=== PATIENT | male | born 1970 | race Caucasian/White ===

== ENCOUNTER → 2018-07-14 | Outpatient (CLI) | payer BC ==
--- NOTE | 2018-07-14 19:07 | ECHOF ---
Referral Reason:R07.89 Chest Pain MEASUREMENTS -------- HEIGHT: 162.6 cm WEIGHT: 77.1 kg BP: RVIDd: 2.8 cm (< 3.3) IVSd: 0.9 cm (0.6 - 1.1) LVIDd: 4.6 cm (3.9 - 5.3) LVPWd: 0.8 cm (0.6 - 1.1) IVSs: 1.3 cm LVIDs: 3.3 cm LVPWs: 1.1 cm LA Diam: 3.4 cm (2.7 - 3.8) Ao Diam: 2.4 cm (2.0 - 3.7) AV Cusp: 1.8 cm (1.5 - 2.6) LA Diam: 3.7 cm (2.7 - 3.8) MV EXCURSION: 18.395 mm (> 18.000) MV EF SLOPE: 88 mm/s (70 - 150) EPSS: 0.3 cm MV E Saad: 0.57 m/s MV DecT: 122 ms MV A Saad: 0.63 m/s MV E/A Ratio: 0.91 RAP: 5.00 mmHg RVSP: 21.64 mmHg FINDINGS -------- Sinus rhythm. This was a technically good study. LV size, wall thickness and systolic function are normal, with an EF greater than 55%. The left amol tricular size is normal. The right ventricle is normal in size. The left atrial size is normal. The right atrial size is normal. Interatrial and interventricular septum intact. The aortic valve is trileaflet, and appears structurally normal. No aortic stenosis or regurgitation. Mild mitral annular calcification present. Mild mitral regurgitation is present. Mild tricuspid regurgitation present. There is no evidence of pulmonary hypertension. The right v entricular systolic pressure, as measured by Doppler, is 21.64mmHg. There is no pulmonic regurgitation present. The aortic root size is normal. Normal inferior vena cava with normal inspiratory collapse consistent with estimated right atrial pre ssure of 5 mmHg. There is no pericardial effusion. CONCLUSIONS -------- 1. LV size, wall thickness and systolic function are normal, with an EF greater than 55%. 2. The left ventricular size is normal. 3. The right ventricle is normal in size. 4. The left atrial size is normal. 5. The right atrial size is normal. 6. Interatrial and interventricular septum intact. 7. The aortic valve is trileaflet, and appears structurally normal. No aortic stenosis or regurgitati on. 8. Mild mitral annular calcification present. 9. Mild mitral regurgitation is present. 10. Mild tricuspid regurgitation present. 11. There is no evidence of pulmonary hypertension. 12. The right ventricular systolic pressure, as measured by Doppler, is 21.64mmHg. 13. There is no pulmonic regurgitation present. 14. The aortic root size is normal. 15. Normal inferior vena cava with normal inspiratory collapse consistent with estimated right atrial pressure of 5 mmHg. 16. There is no pericardial effusion. [employer] EQUIPMENT SALESPERSON: Savita Adams RDCS
== END | disposition home or self-care (01) ==
LOC: RADECHMAIN 10:29
PROVIDERS: ATTEND Family Medicine
DX: I08.1 Rheumatic disorders of both mitral and tricuspid valves (principal)
CPT/HCPCS: 93306

== ENCOUNTER 2018-07-18 08:34 | Observation (INO) | payer BC ==
[2018-07-18] MEDS ORDERED: ASPIRIN 81 MG PO STA (08:51)
[2018-07-18] MEDS ORDERED: NITROGLYCERIN OINT 1 INCH/GM PACKET TOPICAL STA (08:51)
--- NOTE | 2018-07-18 08:54 | ED ---
General Adult HPI - General Chief complaint: Chest Pain Stated complaint: CHEST PAIN x2 WKS Time Seen by Provider: 07/18/18 08:44 Source: patient, RN notes reviewed Mode of arrival: ambulatory Limitations: no limitations - History of Present Illness Initial comments: Patient is a pleasant 47-year-old male presenting to the emergency department chest discomfort. Symptoms have been present over the past couple of weeks. Discomfort was fairly steady for the first week and then seemed to improve. Discomfort has gotten worse again, especially this morning. Discomfort is currently 4/10. Discomfort feels like pressure in the left chest. No associat ed dyspnea, nausea, or diaphoresis. Patient states there has been occasional radiation to the shoulder. Patient did have blood work and an echo done recently as ordered by his doctor. - Related Data Home Medications Medication Instructions Recorded Confirmed Omeprazole 40 mg PO DAILY 07/18/18 07/18/18 Allergies Allergy/AdvReac Type Severity Reaction Status Date / Time Penicillins Allergy Unknown Verified 07/18/18 08:58 Childhood Review of Systems ROS Statement: Those systems with pertinent positive or pertinent negative responses have been documented in the HPI. ROS Other: All systems not noted in ROS Statement are negative. Constitutional: Denies: fever Eyes: Denies: eye pain ENT: Denies: ear pain Respiratory: Denies: cough, dyspnea Cardiovascular: Reports: chest pain Endocrine: Denies: fatigue Gastrointestinal: Denies: abdominal pain Genitourinary: Denies: dysuria Musculoskeletal: Denies: back pain Skin: Denies: rash Neurological: Denies: weakness Past Medical History Past Medical History: No Reported History Additional Past Medical History / Comment(s): 04/08/15 Pt presented to [facility] ER wit intermittent chest discomfort episodes over the last few days and did have some episodes this morning but none on arrival to ER. Pain was a pressure/tightness in sternal region and last about 30 seconds each time. Pain was somewhat positional. Pt woke this morning with left lower quadrant abdomina l pain and some low back pain as well. He is admitted with clinical impression of chest pain and abdominal pain. History of Any Multi-Drug Resistant Organisms: None Reported Past Surgical History: No Surgical Hx Reported Past Anesthesia/Blood Transfusion Reactions: Unable to Obtain Additional Past Anesthesia/Blood Transfusion Reaction / Comment(s): Pt has never had anesthesia. Past Psychological History: No Psychological Hx Reported Smoking Status: Never smoker Past Alcohol Use History: Occasional Past Drug Use History: None Reported - Past Family History Father Family Medical History: Myocardial Infarction ([place]) Additional Family Medical History / Comment(s): Father had a MO at age 48 and CABG surgery. He is living. Mother Family Medical History: Myocardial Infarction ([place]) Additional Family Medical History / Comment(s): Mother had a MO at age 54 yrs. She is still living. General Exam Limitations: no limitations General appearance: alert, in no apparent distress Head exam: Present: atraumatic Eye exam: Present: normal appearance, PERRL ENT exam: Present: normal oropharynx Neck exam: Present: normal inspection Respiratory exam: Present: normal lung sounds bilaterally Cardiovascular Exam: Present: regular rate, normal rhythm, normal heart sounds Expanded Peripheral pulses: 2+: Radial (R), Radial (L), Dorsalis Pedis (R), Dorsalis Pedis (L) GI/Abdominal exam: Present: soft. Absent: tenderness Extremities exam: Present: normal inspection. Absent: pedal edema, calf tenderness Neurological exam: Present: alert Psychiatric exam: Present: normal affect, normal mood Skin exam: Present: normal color Course Vital Signs 07/18/18 08:39 Temperature 98.2 F Pulse Rate 63 Respiratory 18 Rate Blood Pressure 138/64 O2 Sat by Pulse 98 Oximetry EKG Findings - EKG Comments: EKG Findings:: Normal sinus rhythm 66. NV 138. QRS 92. QT 424. QTC 444. Normal axis. LVH criteria. No acute ST change. Medical Decision Making - Medical Decision Making Patient reevaluated and approximately 50% improved following the 2 glycerin paced. Patient and family updated on results and plan. Case was crusted detail with Dr. Maldonado, covering fracture [place], who will admit. - Lab Data Result diagrams: 07/18/18 08:55 07/18/18 08:55 Lab Results 07/18/18 07/18/18 07/18/18 Range/Units 08:55 08:55 08:55 WBC 5.1 (3.8-10.6) k/uL RBC 5.42 (4.30-5.90) m/uL Hgb 15.0 (13.0-17.5) gm/dL Hct 46.5 (39.0-53.0) % MCV 85.9 (80.0-100.0) fL MCH 27.7 (25.0-35.0) pg MCHC 32.2 (31.0-37.0) g/dL RDW 13.4 (11.5-15.5) % Plt Count 167 (150-450) k/uL Neutrophils % 70 % Lymphocytes % 21 % Monocytes % 6 % Eosinophils % 2 % Basophils % 0 % Neutrophils # 3.6 (1.3-7.7) k/uL Lymphocytes # 1.1 (1.0-4.8) k/uL Monocytes # 0.3 (0-1.0) k/uL Eosinophils # 0.1 (0-0.7) k/uL Basophils # 0.0 (0-0.2) k/uL PT 9.8 (9.0-12.0) sec INR 0.9 (<1.2) APTT 25.3 (22.0-30.0) sec Sodium 140 (137-145) mmol/L Potassium 4.3 (3.5-5.1) mmol/L Chloride 105 (98-107) mmol/L Carbon Dioxide 26 (22-30) mmol/L Anion Gap 9 mmol/L BUN 15 (9-20) mg/dL Creatinine 0.72 (0.66-1.25) mg/dL Est GFR (CKD-EPI)AfAm >90 (>60 ml/min/1.73 sqM) Est GFR (CKD-EPI)NonAf >90 (>60 ml/min/1.73 sqM) Glucose 117 H (74-99) mg/dL Calcium 10.0 (8.4-10.2) mg/dL Magnesium 2.2 (1.6-2.3) mg/dL Total Bilirubin 0.9 (0.2-1.3) mg/dL AST 33 (17-59) U/L ALT 53 (21-72) U/L Alkaline Phosphatase 83 (38-126) U/L Troponin I (0.000-0.034) ng/mL Total Protein 7.4 (6.3-8.2) g/dL Albumin 4.9 (3.5-5.0) g/dL 07/18/18 Range/Units 08:55 WBC (3.8-10.6) k/uL RBC (4.30-5.90) m/uL Hgb (13.0-17.5) gm/dL Hct (39.0-53.0) % MCV (80.0-100.0) fL MCH (25.0-35.0) pg MCHC (31.0-37.0) g/dL RDW (11.5-15.5) % Plt Count (150-450) k/uL Neutrophils % % Lymphocytes % % Monocytes % % Eosinophils % % Basophils % % Neutrophils # (1.3-7.7) k/uL Lymphocytes # (1.0-4.8) k/uL Monocytes # (0-1.0) k/uL Eosinophils # (0-0.7) k/uL Basophils # (0-0.2) k/uL PT (9.0-12.0) sec INR (<1.2) APTT (22.0-30.0) sec Sodium (137-145) mmol/L Potassium (3.5-5.1) mmol/L Chloride (98-107) mmol/L Carbon Dioxide (22-30) mmol/L Anion Gap mmol/L BUN (9-20) mg/dL Creatinine (0.66-1.25) mg/dL Est GFR (CKD-EPI)AfAm (>60 ml/min/1.73 sqM) Est GFR (CKD-EPI)NonAf (>60 ml/min/1.73 sqM) Glucose (74-99) mg/dL Calcium (8.4-10.2) mg/dL Magnesium (1.6-2.3) mg/dL Total Bilirubin (0.2-1.3) mg/dL AST (17-59) U/L ALT (21-72) U/L Alkaline Phosphatase (38-126) U/L Troponin I <0.012 (0.000-0.034) ng/mL Total Protein (6.3-8.2) g/dL Albumin (3.5-5.0) g/dL - Radiology Data Radiology results: image reviewed (Chest x-ray shows no acute process) Disposition Clinical Impression: Chest pain Disposition: ADMITTED IP TO THIS [facility] Is patient prescribed a controlled substance at d/c from ED?: No Referrals: Karson Murry DO [Primary Care Provider] - 1-2 days Decision Time: 10:45
[2018-07-18 09:09] LABS: Basophils % (A) 0 %; Eosinophils # (A) 0.1 k/uL (0-0.7); Eosinophils % (A) 2 %; HCT 46.5 % (39.0-53.0); Lymphocytes # (A) 1.1 k/uL (1.0-4.8); Lymphocytes % (A) 21 %; MCH 27.7 pg (25.0-35.0); MCHC 32.2 g/dL (31.0-37.0); MCV 85.9 fL (80.0-100.0); Mean Platelet Volume 6.8; Monocytes # (A) 0.3 k/uL (0-1.0); Monocytes % (A) 6 %; Neutrophils # (A) 3.6 k/uL (1.3-7.7); Neutrophils % (A) 70 %; Platelet Count 167 k/uL (150-450); RBC 5.42 m/uL (4.30-5.90); RDW 13.4 % (11.5-15.5); WBC 5.1 k/uL (3.8-10.6)
--- NOTE | 2018-07-18 09:11 | XR ---
EXAMINATION TYPE: XR chest 2V DATE OF EXAM: 07/18/2018 COMPARISON: 04/08/2015 TECHNIQUE: PA and lateral views submitted. HISTORY: Chest pain FINDINGS: The lungs are clear and there is no pneumothorax, pleural effusion, or focal pneumonia. Limited ins piration. Mild hypertrophic change of the spine. IMPRESSION: 1. No acute process.
[2018-07-18 09:15] LABS: INR 0.9 (<1.2); Partial Thromboplastin Time 25.3 sec (22.0-30.0); Prothrombin Time 9.8 sec (9.0-12.0)
[2018-07-18 09:18] LABS: ALT 53 U/L (21-72); AST 33 U/L (17-59); Albumin 4.9 g/dL (3.5-5.0); Alkaline Phosphatase 83 U/L (38-126); Anion Gap 9 mmol/L; Blood Urea Nitrogen 15 mg/dL (9-20); Carbon Dioxide 26 mmol/L (22-30); Chloride 105 mmol/L (98-107); Glucose 117 mg/dL (74-99); Magnesium 2.2 mg/dL (1.6-2.3); Potassium 4.3 mmol/L (3.5-5.1); Sodium 140 mmol/L (137-145); Total Bilirubin 0.9 mg/dL (0.2-1.3); Total Protein 7.4 g/dL (6.3-8.2)
[2018-07-18] MEDS ORDERED: NITROGLYCERIN SL TABS 0.4 MG TAB SUBLINGUAL PRN (10:45)
[2018-07-18 12:36] VITALS: BMI 29.7
--- NOTE | 2018-07-18 14:25 | P.CRDCN ---
History of Present Illness History of present illness: This is a pleasant 47-year-old male with past medical history significant for gastroesophageal reflux disease. He denies history of coronary artery disease, hypertension and dyslipidemia. 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 He does have significant family history of premature coronary artery disease with his father having suffered a heart attack at the age of 48 and undergoing bypass grafting We have been asked to see him in consultation for symptoms of chest discomfort. He describes a heavy pressure sensation in the midsternal region that has been intermittent previous 2 weeks. There is no radiation to the arm, back, neck or jaw. He has no associated s hortness of breath, dizziness, palpitations, nausea, vomiting or diaphoresis. There is no specific aggravating or alleviating factor. He says specifically today his pain has been more frequent and is not associated with exertion or activity. He uses his treadmill at home daily and he does not feel chest discomfort with exertion. He recently saw his primary care physician with similar complaints and underwent a 2-D echocardiogram revealing preserved LV systolic function with ejection fraction 55-60%. He is scheduled to undergo stress testing on July 25. He is seen and examined resting comfortably in bed. He currently has chest discomfort. He states he has been taking omeprazole for the previous couple of weeks and feels no definite difference in his pain. Initial EKG on arrival reveals sinus mechanism with no acute ST or T wave abnormalities noted. Chest x-ray is negative for acute cardiopulmonary process. Laboratory data reviewed, WBC 5.1, hemoglobin 15, platelets 167, sodium 140, potassium 4.3, creatinine 0.72, magnesium 2.2, cardiac enzymes negative 1. He takes no daily cardiac medications. At the time of my exam: CONSTITUTIONAL: Denies fever. Denies chills. EYES: Denies blurred vision. Denies vision changes. Denies eye pain. EARS, NOSE, MOUTH & THROAT: Denies headache. Denies sore throat. Denies ear pain. CARDIOVASCULAR: Denies chest pain. Denies shortness of breath. Denies orthopnea. Denies PND. Denies palpitations. RESPIRATORY: Denies cough. GASTROINTESTINAL: Denies abdominal pain. Denies diarrhea. Denies constipation. Denies nausea. Denies vomiting. MUSCULOSKELETAL: Denies myalgias. INTEGUMENTARY: Denies pruitis. Denies rash. NEUROLOGIC: Denies numbness. Denies tingling. Denies weakness. PSYCHIATRIC: Denies anxiety. Denies depression. ENDOCRINE: Denies fatigue. Denies weight change. Denies polydipsia. Denies polyurina. GENITOURINARY: Denies burning, hematuria or urgency with micturation. HEMATOLOGIC: Denies history of anemia. Denies bleeding. Blood pressure 122/78 heart rate 59 afebrile maintaining oxygen saturation on room air GENERAL: This is a 47-year-old male in no apparent distress at the time of my examination. HEENT: Head is atraumatic, normocephalic. Pupils are equal, round. Sclerae anicteric. Conjunctivae are clear. Mucous membranes of the mouth are moist. Neck is supple. There is no jugular venous distention. No carotid bruit is heard. LUNGS: Clear to auscultation no wheezes, rales or rhonchi. No chest wall tenderness is noted on palpation or with deep breathing. HEART: Regular rate and rhythm without murmurs, rubs or gallops. S1 and S2 heard. ABDOMEN: Soft, mild epigastric tenderness. Bowel sounds are heard. No o rganomegaly noted. EXTREMITIES: No evidence of peripheral edema and no calf tenderness noted. VASCULAR: Radial and dorsalis pedis pulses palpated, no evidence of clubbing. NEUROLOGIC: Patient is awake, alert and oriented x3. ASSESSMENT Chest pain, atypical for angina. History of gastroesophageal reflux disease PLAN Remove Nitropaste and repeat EKG now that he is having active chest discomfort. EKG was obtained and reviewed and reveals sinus mechanism with no acute ST or T- wave abnormalities. Continue to obtain serial cardiac enzymes to rule out an acute coronary event. Check lipid profile. If enzymes are normal we will proceed with stress testing tomorrow morning rather than waiting until next week due to his family history. Thank you kindly for this consultation. Nurse Practitioner note has been reviewed, I agree with a documented findings and plan of care. Patient was seen and examined. Past Medical History Past Medical History: No Reported History, GERD/Reflux, Osteoarthritis (OA) Additional Past Medical History / Comment(s): Gastritis, esophagitis, cervical arthritis History of Any Multi-Drug Resistant Organisms: None Reported Past Surgical History: No Surgical Hx Reported Additional Past Surgical History / Comment(s): Colonoscopy-normal, skin lesions removed from forehead. Past Anesthesia/Blood Transfusion Reactions: No Reported Reaction, Unable to Obtain Additional Past Anesthesia/Blood Transfusion Reaction / Comment(s): Pt has never had anesthesia. Smoking Status: Never smoker - Past Family History Father Family Medical History: Myocardial Infarction ([place]) Additional Family Medical History / Comment(s): Father had a [place] at age 48 and CABG surgery. He is living. Mother Family Medical History: Cancer, Myocardial Infarction ([place]) Additional Family Medical History / Comment(s): Mother had a [place] at age 54 yrs. She from nonhodgkins lymphoma Medications and Allergies Home Medications Medication Instructions Recorded Confirmed Type Omeprazole 40 mg PO DAILY 07/18/18 07/18/18 History Allergies Allergy/AdvReac Type Severity Reaction Status Date / Time Penicillins Allergy Unknown Verified 07/18/18 08:58 Childhood Physical Exam Vitals: Vital Signs Temp Pulse Pulse Resp BP BP Pulse Ox 07/18/18 11:07 98.2 F 59 L 18 122/78 96 07/18/18 10:45 62 19 109/62 97 07/18/18 08:39 98.2 F 63 18 138/64 98 Intake and Output 07/17/18 07/18/18 07/18/18 22:59 06:59 14:59 Intake Total 236 Balance 236 Intake: Oral 236 Other: Voiding Method Toilet Weight 78.471 kg Results 07/18/18 08:55 07/18/18 08:55 Cardiac Enzymes 07/18/18 07/18/18 Range/Units 08:55 08:55 AST 33 (17-59) U/L Troponin I <0.012 (0.000-0.034) ng/mL Coagulation 07/18/18 Range/Units 08:55 PT 9.8 (9.0-12.0) sec APTT 25.3 (22.0-30.0) sec CBC 07/18/18 Range/Units 08:55 WBC 5.1 (3.8-10.6) k/uL RBC 5.42 (4.30-5.90) m/uL Hgb 15.0 (13.0-17.5) gm/dL Hct 46.5 (39.0-53.0) % Plt Count 167 (150-450) k/uL Comprehensive Metabolic Panel 07/18/18 Range/Units 08:55 Sodium 140 (137-145) mmol/L Potassium 4.3 (3.5-5.1) mmol/L Chloride 105 (98-107) mmol/L Carbon Dioxide 26 (22-30) mmol/L BUN 15 (9-20) mg/dL Creatinine 0.72 (0.66-1.25) mg/dL Glucose 117 H (74-99) mg/dL Calcium 10.0 (8.4-10.2) mg/dL AST 33 (17-59) U/L ALT 53 (21-72) U/L Alkaline Phosphatase 83 (38-126) U/L Total Protein 7.4 (6.3-8.2) g/dL Albumin 4.9 (3.5-5.0) g/dL Current Medications Generic Name Dose Route Start Last Admin Trade Name Freq PRN Reason Stop Dose Admin Aspirin 325 mg 07/19/18 09:00 Aspirin PO DAILY HANS Nitroglycerin 1 inch 07/18/18 15:00 Nitro-Bid Oint TOPICAL Q6H HANS Nitroglycerin 0.4 mg 07/18/18 10:45 Nitrostat SUBLINGUAL Q5M PRN Chest Pain Intake and Output 07/17/18 07/18/18 07/18/18 22:59 06:59 14:59 Intake Total 236 Balance 236 Intake: Oral 236 Other: Voiding Method Toilet Weight 78.471 kg Patient Weight 07/19/18 06:59 Weight 78.471 kg 07/18/18 08:55 07/18/18 08:55
--- NOTE | 2018-07-18 14:41 | P.HPIM ---
History of Present Illness H&P Date: 07/18/18 Chief Complaint: Chest pain This is a 47-year-old male patient of Dr. Murry with a past medical history of gastroesophageal reflux disease. Patient states he has had lower sternal chest pain that has been going on for couple weeks. He denies any radiation, no diaphoresis. He states he walks on a treadmill at a fast paced on an incline 30 minutes every morning and does not have the pain. Usually couple hours later while he is driving to work he starts having pain. Over the weekend he did not have any pain at all but on Tuesday morning it started again. He denies having any dysphagia. No nausea or vomiting. No shortness of breath with ambulation no edema. Dr. Murry his ordered for echocardiogram which was done on July 14 that revealed EF of 55%, mild mitral regurgitation, mild tricuspid regurgitation, no pulmonary hypertension. Troponin was negative at that time and triglycerides 66, cholesterol 209, LDL 143, HDL 53. Patient states that he started omeprazole about one week ago he has not noted any improvement of his chest pain. He has cut back on his coffee intake from 4 cups per day down to one cup per day and today he only had half a cup of coffee. He states he has been avoidingseafoods. Despite these changes he has not had any improvement or resolution of the pain. He denies any increased stress in his life. He does have an outpatient stress test scheduled for July 25 which was ordered by Dr. Murry. Patient came into [facility] emergency center for evaluation. Troponin has been negative. Patient has been placed on the observation unit. Patient has been seen by cardiology with plan for stress echo tomorrow. Patient had similar symptoms a couple years ago and had follow-up with the GI doctor but did not have EGD done. Review of Systems All systems: negative Constitutional: Denies chills, Denies fatigue, Denies fever, Denies lethargy, Denies malaise, Denies poor appetite, Denies weakness, Denies weight loss Eyes: denies blurred vision, denies pain Ears, nose, mouth and throat: Denies dysphagia, Denies epistaxis, Denies headache, Denies nasal congestion, Denies nasal discharge, Denies sore throat, Denies vertigo Cardiovascular: Reports chest pain, Denies decreased exercise tolerance, Denies dyspnea on exertion, Denies edema, Denies leg edema, Denies lightheadedness, Denies shortness of breath, Denies syncope Respiratory: Denies cough, Denies cough with sputum, Denies dyspnea, Denies excessive sputum, Denies hemoptysis, Denies home oxygen, Denies wheezing Gastrointestinal: Denies abdominal pain, Denies diarrhea, Denies loss of appetite, Denies melena, Denies nausea, Denies vomiting Genitourinary: Denies dysuria, Denies urinary retention Musculoskeletal: Denies frequent falls, Denies gait dysfunction, Denies muscle weakness, Denies myalgias Integumentary: Denies pruritus, Denies rash, Denies wounds Neurological: Denies aphasia, Denies change in mentation, Denies change in spee ch, Denies confusion, Denies head injury, Denies headaches, Denies numbness, Denies seizures, Denies vertigo, Denies weakness Psychiatric: Denies anxiety, Denies depression Endocrine: Denies fatigue, Denies weight change Past Medical History Past Medical History: No Reported History, GERD/Reflux, Osteoarthritis (OA) Additional Past Medical History / Comment(s): Gastritis, esophagitis, cervical arthritis History of Any Multi-Drug Resistant Organisms: None Reported Past Surgical History: No Surgical Hx Reported Additional Past Surgical History / Comment(s): Colonoscopy-normal, skin lesions removed from forehead. Past Anesthesia/Blood Transfusion Reactions: No Reported Reaction, Unable to Obtain Additional Past Anesthesia/Blood Transfusion Reaction / Comment(s): Pt has never had anesthesia. Smoking Status: Never smoker Additional Past Alcohol Use History / Comment(s): Patient is a lifelong nonsmoker. He denies any marijuana, street drug use. He drinks alcohol occasionally. - Past Family History Father Family Medical History: Myocardial Infarction ([place]) Additional Family Medical History / Comment(s): Father had a [place] at age 48 and CABG surgery. He is living. Mother Family Medical History: Cancer, Myocardial Infarction ([place]) Additional Family Medical History / Comment(s): Mother had a [place] at age 54 yrs. She from nonhodgkins lymphoma Brother(s) Additional Family Medical History / Comment(s): The patient's father and sister do not have any medical problems. Patient has children with no major medical problems. Medications and Allergies Home Medications Medication Instructions Recorded Confirmed Type Omeprazole 40 mg PO DAILY 07/18/18 07/18/18 History Allergies Allergy/AdvReac Type Severity Reaction Status Date / Time Penicillins Allergy Unknown Verified 07/18/18 08:58 Childhood Physical Exam Vitals: Vital Signs Temp Pulse Pulse Resp BP BP Pulse Ox 07/18/18 11:07 98.2 F 59 L 18 122/78 96 07/18/18 10:45 62 19 109/62 97 07/18/18 08:39 98.2 F 63 18 138/64 98 Intake and Output 07/17/18 07/18/18 07/18/18 22:59 06:59 14:59 Other: Voiding Method Toilet Weight 78.471 kg Gen: This is a 47-year-old male patient. He is resting in bed and appears to be comfortable and in no acute distress. HEENT: Head is atraumatic, normocephalic. Pupils equal, round. Sclerae is anicteric. NECK: Supple. No JVD. No lymphadenopathy. No thyromegaly. LUNGS: Clear to auscultation. No wheezes or rhonchi. No intercostal retractions. HEART: Regular rate and rhythm. No murmur. ABDOMEN: Soft. Bowel sounds are present. No masses. No tenderness. No epigastric tenderness. EXTREMITIES: No pedal edema. No calf tenderness. Dorsalis pedis +2 bilaterally. NEUROLOGICAL: Patient is awake, alert and oriented x3. Cranial nerves 2 through 12 are grossly intact. Results CBC & Chem 7: 07/18/18 08:55 07/18/18 08:55 Labs: Abnormal Lab Results - Last 24 Hours (Table) 07/18/18 Range/Units 08:55 Glucose 117 H (74-99) mg/dL Assessment and Plan Plan: 1. Chest pain. Repeat troponins, cardiology consult appreciated. Echo stress test ordered for tomorrow. 2. Gastroesophageal reflux disease. Patient is normally on omeprazole 40 mg daily and started this one week ago. 3. Cervical arthritis, stable. Patient placed in the observation unit. Discharge plan: Home tomorrow if stress test is negative. Impression and plan of care have been directed as dictated by the signing physician. Dora Sullivan nurse practitioner acting as scribe for signing physician.
[2018-07-18] MEDS ORDERED: NITROGLYCERIN OINT 1 INCH/GM PACKET TOPICAL SCH (15:00)
[2018-07-18] MEDS: PANTOPRAZOLE 40 MG TABLET PO SCH (17:23)
[2018-07-19 08:27] VITALS: RESP 18; TEMP 97.9
[2018-07-19] MEDS ORDERED: ASPIRIN 325 MG TAB PO SCH (09:00)
[2018-07-19] MEDS ORDERED: ASPIRIN 81 MG PO SCH (09:00)
--- NOTE | 2018-07-19 10:07 | P.PN ---
Subjective This is a pleasant 47-year-old male with past medical history significant for gastroesophageal reflux disease. He denies history of coronary artery disease, hypertension and dyslipidemia. He does not follow regularly with a rn clinical. He does have significant family history of premature coronary artery disease with his father having suffered a heart attack at the age of 48 and undergoing bypass grafting We have been asked to see him in consultation for symptoms of chest discomfort. He describes a heavy pressure sensation in the midsternal region that has been intermittent previous 2 weeks. There is no radiation to the arm, back, neck or jaw. He has no associated shortness of breath, dizziness, palpitations, nausea, vomiting or diaphoresis. There is no specific aggravating or alleviating factor. He says specifically today his pain has been more frequent and is not associated with exertion or activity. He uses his treadmill at home daily and he does not feel chest discomfort with exertion. He recently saw his primary care physician with similar complaints and underwent a 2-D echocardiogram revealing preserved LV systolic function with ejection fraction 55-60%. He is scheduled to undergo stress testing on July 25. He is seen and examined resting comfortably in bed. He currently has chest discomfort. He states he has been taking omeprazole for the previous couple of weeks and feels no definite difference in his pain. 07/19/2018 Patient is seen and examined resting comfortably in bed with his at the bedside. Protonix was initiated yesterday 40 mg twice a day. He states approximately one hour after receiving the Protonix last night his chest discomfort greatly improved. He had a return of his chest discomfort this morning, he has yet to receive his Protonix. Blood pressure 107/68 heart rate 65 afebrile maintaining oxygen saturation on room air. Laboratory data reviewed, cardiac enzymes negative 3. GENERAL: This is a 47-year-old male in no apparent distress at the time of my examination. HEENT: Head is atraumatic, normocephalic. Pupils are equal, round. Sclerae anicteric. Conjunctivae are clear. Mucous membranes of the mouth are moist. Neck is supple. There is no jugular venous distention. No carotid bruit is heard. LUNGS: Clear to auscultation no wheezes, rales or rhonchi. No chest wall tenderness is noted on palpation or with deep breathing. HEART: Regular rate and rhythm without murmurs, rubs or gallops. S1 and S2 heard. EXTREMITIES: No evidence of peripheral edema and no calf tenderness noted. ASSESSMENT Chest pain, atypical for angina. History of gastroesophageal reflux disease PLAN Symptoms sound suggestive of gastroesophageal reflux disease. Will proceed with stress echocardiogram to rule out stress-induced ischemia. Stress test is normal he should follow-up with GI services as an outpatient. Nurse Practitioner note has been reviewed, I agree with a documented findings and plan of care. Patient was seen and examined. Objective - Vital Signs Vital signs: Vital Signs Temp 97.9 F 07/19/18 07:30 Pulse 65 07/19/18 07:30 Resp 18 07/19/18 07:30 BP 107/68 07/19/18 07:30 Pulse Ox 97 07/19/18 07:30 Intake & Output 07/18/18 07/19/18 07/19/18 18:59 06:59 18:59 Intake Total 236 Balance 236 Weight 78.471 kg Intake: Oral 236 Other: Voiding Method Toilet Toilet # Voids 1 - Labs CBC & Chem 7: 07/18/18 08:55 07/18/18 08:55
--- NOTE | 2018-07-19 11:17 | P.STRESS ---
- Stress Test Note Stress Test Results/Findings: Exam Performed: stress echo exercise Exam Date: 07/19/18 Reason for Exam: CHEST PAIN Height: 5 ft 4 in Weight: 78.471 kg Protocol: STRESS ECHO Stage: 4 Duration of Exercise: 12:00 MINUTES Resting Heart Rate: 61 Resting Blood Pressure: 132/63 Maximum Achieved Heart Rate: 157 Maximum Achieved Blood Pressure: 29/60 85% PMHR: 147 100% PMHR: 173 METS: 12.1 Technologist Comment: Stress Test Results/Findings: Baseline heart is 61 beats a minute, Baseline blood pressure 132/63 mmHg Baseline 20 seizures normal sinus rhythm normal cardiac intervals Patient exercised on a [place] protocol for 12 minutes achieving a peak 100 156 beats a minute Occasional PVCs Baseline 2-D echo images showed normal LV systolic function without segmental wall motion abnormalities At peak exercise there was excellent augmentation of oral LV contractility, without development of any wall motion amenities At recovery region global LV systolic function remained normal Impression Good exercise capacity No ECG or echocardiogram for evidence for ischemia
[2018-07-19] MEDS: PANTOPRAZOLE 40 MG TABLET PO SCH (11:36)
[2018-07-19 11:58] VITALS: BP 109/65; PULSE 67
== END 2018-07-19 13:11 | disposition home or self-care (01) ==
LOC: EC 08:34 → 1SOBS 10:45
PROVIDERS: ADMIT Internal Medicine; ATTEND Internal Medicine
DX: R07.89 Other chest pain (principal); K21.9 Gastro-esophageal reflux disease without esophagitis; M46.92 Unspecified inflammatory spondylopathy, cervical region; I08.1 Rheumatic disorders of both mitral and tricuspid valves; M19.90 Unspecified osteoarthritis, unspecified site; Z79.899 Other long term (current) drug therapy; Z88.0 Allergy status to penicillin; Z87.19 Personal history of other diseases of the digestive system; Z80.7 Family history of other malignant neoplasms of lymphoid, hematopoietic and related tissues; Z82.49 Family history of ischemic heart disease and other diseases of the circulatory system
CPT/HCPCS: 99285; 36415; 93005; 93351; 80053; 83735; 84484; 85025; 85610; 85730; 71046; G0378 ×2

== ENCOUNTER → 2018-08-04 | Outpatient (CLI) | payer BC ==
--- NOTE | 2018-08-04 11:09 | US ---
EXAMINATION TYPE: US gallbladder DATE OF EXAM: 08/04/2018 COMPARISON: NONE CLINICAL HISTORY: R07.89 Other chest pain. EXAM MEASUREMENTS: Liver Length: 13.1 cm Gallbladder Wall: 0.3 cm CBD: 0.4 cm Right Kidney: 10.9 x 6.0 x 6.0 cm Pancreas: visualized portions wnl Liver: wnl Gallbladder: No stones seen Evidence for sonographic Hankins's sign: No CBD: wnl Right Kidney: No hydronephrosis or masses seen IMPRESSION: 1. Visualized right upper quadrant ultrasound unremarkable.
== END | disposition home or self-care (01) ==
LOC: RADUSWWP 09:21
PROVIDERS: ATTEND Internal Medicine Gastroenterology
DX: R07.89 Other chest pain (principal)
CPT/HCPCS: 76705

== ENCOUNTER 2018-08-08 10:09 | Day surgery (SDC) | payer BC ==
[2018-08-03 13:28] VITALS: BMI 29.0
[~2018-08-08 10:09] MED LIST: LACTATED RINGERS 1,000 ML IV SCH
[2018-08-08 11:05] VITALS: PULSE 65; TEMP 98
[2018-08-08] MEDS ORDERED: LIDOCAINE 1% 20 ML VIAL (10MG/ML) FOR IV START INTRADERMA ONE (11:15)
[2018-08-08] MEDS ORDERED: fentaNYL (PF) 50 MCG/ML 2 ML AMP ONE (11:55)
[2018-08-08] MEDS ORDERED: MIDAZOLAM 2 MG/2 ML VIAL ONE (11:55)
[2018-08-08] MEDS ORDERED: LIDOCAINE 1% INJ 10MG/ML (20 ML MDV) ONE (11:55)
[2018-08-08] MEDS ORDERED: PROPOFOL 10 MG/ML 20 ML VIAL IV ONE (11:55)
[2018-08-08 12:19] VITALS: BP 98/64; RESP 14
--- NOTE | 2018-08-08 13:15 | P.PCN ---
Date of Procedure: 08/08/18 Procedure(s) Performed: Procedure: Esophagogastroduodenoscopy and biopsy. Preoperative diagnosis: Epigastric burning and atypical chest pain. Postoperative diagnosis: 1. Gastritis and duodenitis. 2. Multiple biopsies obtained from the duodenum, antrum and esophagus. Preparation and sedation: Was provided by anesthesia. Brief clinical history: The patient is an 47-year-old male who is scheduled for this evaluation because of history of epigastric pain and atypical chest pain. The patient was in the emergency room for this problem and her cardiac workup which was not revealing. He was evaluated in our office and scheduled for this exam to rule out peptic ulcer disease, complicated reflux disease or other pathology. Procedure: With the patient on his left lateral decubitus position and after informed consent and adequate sedation, I passed the Olympus-GIF H190 video upper endoscope through cricopharyngeus down the esophagus. GE junction was around 42-43 cm from the incisors and there was no definite hiatal hernia or any evidence of esophagitis or complicated reflux disease. The endoscope was then passed into the stomach which was insufflated with air and inspected in detail including the retroflex view in the cardia. There was some mottling and erythema in the antrum but no ulcers or bleeding. Pyloric channel did not show any ulcers. Duodenal bulb, post bulbar area and descending duodenum showed mottling, erythema and some friability but no ulcers, erosions or bleeding. I obtained multiple biopsies from the duodenum, antrum and esophagus then the endoscope was withdrawn. The patient tolerated the procedure well. Plan: The patient was reassured. Will await biopsy results. He will follow up with you as planned. Consideration can be given for GB workup and workup for upper other abdominal pathology if he continues to have issues. He will follow up in our office as planned and would keep you updated on his progress.
== END 2018-08-08 12:45 | disposition home or self-care (01) ==
LOC: ORWHC2ENDO 10:09
DX: K29.50 Unspecified chronic gastritis without bleeding (principal); K29.80 Duodenitis without bleeding; K21.9 Gastro-esophageal reflux disease without esophagitis; M19.90 Unspecified osteoarthritis, unspecified site; Z88.0 Allergy status to penicillin; Z79.899 Other long term (current) drug therapy
CPT/HCPCS: 88305; 43239; J2250; J2001; J3010; J2704